=== PATIENT | male | born 1965 | race African-American/Black ===

== ENCOUNTER 2020-06-14 16:45 | Emergency (ER) | payer MEDICAID ==
[~2020-06-14] VITALS: Ht 180.3 cm; Wt 150.0 kg
[2020-06-14 19:09] LABS: CLARITY URINE CLEAR (CLEAR); COLOR URINE DARK YELLOW (YELLOW); KETONES URINE TRACE (NEGATIVE); LEUKOCYTE ESTERASE URINE TRACE (NEGATIVE); NITRITE URINE NEGATIVE (NEGATIVE); OCCULT BLOOD URINE NEGATIVE (NEGATIVE); PROTEIN URINE TRACE (NEGATIVE); SPECIFIC GRAVITY URINE 1.022 (1.005-1.030)
[2020-06-14 19:34] LABS: *AMPHETAMINES SCREEN URINE NEGATIVE (NEGATIVE); *BARBITURATES SCREEN URINE NEGATIVE (NEGATIVE)
[2020-06-14 19:36] LABS: *BENZODIAZEPINES SCREEN URINE NEGATIVE (NEGATIVE); *COCAINE SCREEN URINE NEGATIVE (NEGATIVE); CANNABINOID URINE SCREEN PRESUMTIVE POSITIVE (NEGATIVE); METHADONE URINE SCREEN NEGATIVE (NEGATIVE); OPIATES URINE SCREEN NEGATIVE (NEGATIVE); PHENCYCLIDINE URINE SCREEN NEGATIVE (NEGATIVE)
[2020-06-14] MEDS ORDERED: NICARDIPINE 40MG/200ML PREMIX 200 ML IV PRN (19:45)
[2020-06-14 19:46] LABS: BASOPHILS % 0.2 % (0.0-2.0); EOSINOPHILS % 1.4 % (0.0-5.0); HEMATOCRIT. 41.6 % (42.0-52.0); LYMPHOCYTES % 16.4 % (20.0-50.0); MEAN CORPUSCULAR HEMOGLOBIN 31.2 pg (28.0-32.0); MEAN CORPUSCULAR VOLUME 92.4 fL (80.0-94.0); MEAN PLATELET VOLUME 8.6 fl (7.4-10.4); MONOCYTES % 12.8 % (2.0-8.0); NEUTROPHILS % 69.2 % (40.0-76.0); PLATELET 167 x1000/uL (130-400); RED CELL DISTRIBUTION WIDTH 16.3 % (11.6-14.6)
[2020-06-14 19:59] LABS: CHLORIDE 99 mEq/L (98-107)
[2020-06-14 20:01] LABS: ETHANOL BLOOD < 10 mg/dL
[2020-06-14] MEDS ORDERED: HYDRALAZINE HCL 10MG TABLET PO ONE (21:45)
[2020-06-14 22:31] VITALS: BP 153/101
== END 2020-06-14 22:34 | disposition home or self-care (01) ==
LOC: ER 16:45
DX: I16.1 Hypertensive emergency (principal); E78.00 Pure hypercholesterolemia, unspecified; Z98.890 Other specified postprocedural states; Z86.711 Personal history of pulmonary embolism; Z79.01 Long term (current) use of anticoagulants; Z86.718 Personal history of other venous thrombosis and embolism; Z88.8 Allergy status to other drugs, medicaments and biological substances
CPT/HCPCS: 36415; 71045; 80053; 80305; 80320; 81003; 83605; 83880; 84484; 85025; 93005; 99285; G0480

== ENCOUNTER 2024-02-24 10:34 | Emergency (ER) | payer SELFPAY ==
[~2024-02-24] VITALS: Ht 177.8 cm; Wt 105.0 kg
[2024-02-24 10:36] VITALS: O2SAT 93
[2024-02-24] MEDS: SODIUM CHLORIDE 0.9% 1,000 ML IV ONE (11:26)
[2024-02-24 11:36] LABS: BASOPHILS % 0.7 % (0.0-2.0); EOSINOPHILS % 1.1 % (0.0-5.0); HEMATOCRIT. 37.7 % (42.0-52.0); HEMOGLOBIN. 12.6 g/dL (14.0-18.0); LYMPHOCYTES % 18.4 % (20.0-50.0); MEAN CORPUSCULAR HEMOGLOBIN 31.2 pg (28.0-32.0); MEAN CORPUSCULAR HGB CONC 33.5 g/dL (31.0-37.0); MEAN CORPUSCULAR VOLUME 93.3 fL (80.0-94.0); MEAN PLATELET VOLUME 7.7 fl (7.4-10.4); MONOCYTES % 6.2 % (2.0-8.0); NEUTROPHILS % 73.6 % (40.0-76.0); PLATELET 206 x1000/uL (130-400); RED BLOOD CELL COUNT 4.04 mill/uL (4.7-6.1); RED CELL DISTRIBUTION WIDTH 14.2 % (11.6-14.6); WHITE BLOOD COUNT 8.7 x1000/uL (4.5-11.0)
[2024-02-24 11:45] LABS: CHLORIDE 105 mEq/L (98-107); POTASSIUM 3.2 mEq/L (3.5-5.1); SODIUM 138 mEq/L (136-145)
[2024-02-24 11:46] LABS: CALCIUM 8.4 mg/dL (8.7-10.4); CARBON DIOXIDE 25 mEq/L (21-32)
[2024-02-24 11:47] LABS: INR 1.1; PARTIAL THROMBOPLASTIN TIME 23.5 sec (23.4-31.0); PROTHROMBIN TIME 11.8 sec (9.6-11.0)
[2024-02-24 11:51] LABS: CREATININE 0.9 mg/dL (0.6-1.3); GLUCOSE 91 mg/dL (70-105); UREA NITROGEN BLOOD 11 mg/dL (9-23)
[2024-02-24 11:52] LABS: TROPONIN I HIGH SENSITIVITY 4 ng/L (3.0-53)
[2024-02-24] MEDS: POTASSIUM CHLORIDE 20MEQ TABLET SR PO ONE (12:50)
[2024-02-24 13:08] VITALS: BP 143/69; PULSE 101; RESP 15; TEMP 98.3
== END 2024-02-24 13:33 | disposition home or self-care (01) ==
LOC: ER 10:34
DX: I86.8 Varicose veins of other specified sites (principal); R55 Syncope and collapse; E78.00 Pure hypercholesterolemia, unspecified; I10 Essential (primary) hypertension
CPT/HCPCS: 80048; 83880; 85025; 85610; 85730; 86850; 86900; 86901; 84484; 36415; 71045; 93005; 99285; J7030; Z7610 ×3